=== PATIENT | female | born 2000 | race Caucasian/White ===

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

== ENCOUNTER 2021-06-27 12:20 | Emergency (ER) | payer SELFPAY ==
[~2021-06-27 12:20] MED LIST: CIPR7.5D AD; FLUT9.9S NS; IBUP-1007 PO; PROM118S5 PO
== END 2021-06-27 14:26 | disposition left against medical advice (07) ==
LOC: ER 12:20
DX: R10.9 Unspecified abdominal pain (principal); Z53.21 Procedure and treatment not carried out due to patient leaving prior to being seen by health care provider